=== PATIENT | male | born 1970 | race Caucasian/White ===

== ENCOUNTER 2020-09-28 12:49 | Inpatient (IN) | payer MEDICARE, MEDICAID ==
[2020-09-28] MEDS ORDERED: cefTRIAXone\\ROCEPHIN 1 GM VIAL ONE (13:47)
[2020-09-28] MEDS ORDERED: Pantoprazole 40 MG VIAL ONE (13:47)
--- NOTE | 2020-09-28 13:56 | RAD ---
PORTABLE SUPINE CHEST: 09/28/20 INDICATIONS: GI bleed. No comparison. The patient is rotated distorting the chest. No infiltrate or vascular congestion. There is a nodular opacity in the right apical region. This was present when review of CT cervical sp ine of 12/13/15 is reviewed. No effusion or vascular congestion. Heart and mediastinum are unremarkable considering the rotation. IMPRESSION: 1. No acute process. 2. Nodule in the right apex. Recommend follow-up exam with better positioning. Follow-up CT ches t may be of benefit to assess change in this nodule. Code T
[2020-09-28 16:55] LABS: #Lymphocytes 2.6 thou/uL (1.20-3.40); #Monocytes 1.5 thou/uL (0.11-0.59); #Neutrophils 10.9 thou/uL (1.40-6.50); %Basophils 0.3 % (0.0-1.0); %Eosinophils 0.1 % (0.0-10.0); %Lymphocytes 17.3 % (21.0-51.0); %Neutrophils 72.2 % (42.0-75.0); Hemoglobin 17.2 g/dL (14.0-18.0); Mean Corpuscular HGB CONC 33.8 g/dL (32.0-36.0); Mean Corpuscular Hemoglobin 32.4 pg (27.0-31.0); Mean Corpuscular Volume 95.8 fL (78.0-98.0); Mean Platelet Volume 9.2 fL (7.4-10.4); Platelet Count 126 thou/uL (130-400); RBC Distribution Width 12.5 % (11.5-14.5); Red Blood Cell (RBC) Count 5.31 mill/uL (4.70-6.10); White Blood Cell (WBC) Count 15.1 thou/uL (4.8-10.8)
[2020-09-28 17:02] LABS: PTT 28.1 sec (22.9-36.1); Prothrombin Time 13.2 sec (12.0-14.7)
[2020-09-28 17:26] LABS: Albumin 3.4 g/dL (3.5-5.0)
[2020-09-28 17:28] LABS: Calcium 8.8 mg/dL (7.8-10.44); Chloride 101 mmol/L (98-107); Sodium 137 mmol/L (136-145)
[2020-09-28 17:29] LABS: Globulin 3.8 g/dL (2.4-3.5); Glucose 83 mg/dL (70-105); Protein, Total 7.2 g/dL (6.0-8.3)
[2020-09-28 17:30] LABS: Anion Gap 15 mmol/L (10-20); Carbon Dioxide 26 mmol/L (22-29)
[2020-09-28 17:33] LABS: Alkaline Phosphatase 100 U/L (40-110); BUN (Urea Nitrogen) 10 mg/dL (8.9-20.6); Bilirubin, Total 0.8 mg/dL (0.2-1.2); Calc. Creatinine Clearance 0 mL/min (70-130); Estimated GFR-MDRD Greater than 90
[2020-09-28 17:34] LABS: AST (SGOT) 32 U/L (5-34)
[2020-09-28 17:35] LABS: ALT (SGPT) 13 U/L (8-55)
--- NOTE | 2020-09-28 18:08 | PDOC.HHP ---
Hospitalist HPI - History of Present Illness GI bleed History of Present Illness: PCP: Dr. Tj Tejeda The patient is a 50-year-old male with a past medical history significant for severe intellectual disability, dysphagia and epilepsy that presents to the emergency department via air med from [facility]. The patient is aphasic and unable to give a history, therefore, the H&P was taken from the ER notes and there was an unsuccessful attempt to contact retirement staff via telephone. Per the ER note, the patient had an episode of hematemesis this evening. The emesis was described as bright red blood and coffee-ground in nature. [facility] was called. Upon arrival, the patient was hypotensive and tachycardic with normal respirations and SPO2 saturation. The patient was given 1 unit of blood and 1 g of TXA and was transported to the hospital for further evaluation. ED Course: VITAL SIGNS SatSep 28, 2020 13:03 KYLE Zarate Oswaldo BP: 102/67, MAP: 78, Pulse: 105, Resp: 20, Temp: 98.0 (Oral), Pain: utr, O2 sat: 93 on (Room Air), Time: 09/28/2020 13:03. VITAL SIGNS SatSep 28, 2020 13:45 KYLE Riddle Kristin BP: 90/55, MAP: 66, Pulse: 92, Resp: 18, O2 sat: 94 on (Room Air), Time: 09/28/2020 13:45. VITAL SIGNS SatSep 28, 2020 14:00 KYLE Riddle Kristin BP: 94/61, MAP: 72, Pulse: 88, Resp: 20, O2 sat: 94 on (Room Air), Time: 09/11 14:00. VITAL SIGNS SatSep 28, 2020 14:45 KYLE Zarate Oswaldo BP: 103/66, MAP: 78, Pulse: 100, Resp: 20, Pain: UTR, O2 sat: 95 on (Room Air), Time: 09/28/2020 14:45. VITAL SIGNS SatSep 28, 2020 17:03 KYLE Zarate Oswaldo BP: 100/40, MAP: 60, Pulse: 96, Resp: 21, Temp: 98.1 (Oral), Pain: UTR, O2 sat: 93, Time: 09/28/2020 17:03. VITAL SIGNS SatSep 28, 2020 15:45 KYLE Zarate, [place] BP: 103/60, MAP: 74, Pulse: 79, Resp: 20, Pain: UTR, O2 sat: 93 on (Room Air), Time: 09/28/2020 15:45. Medications: Protonix intravenous 80 mg IV Piggy Back Given 14:57 09/28/2020 pantoprazole intravenous 80 mg IV Push Given 13:54 09/28/2020 Hospitalist ROS - Review of Systems ROS unobtainable: due to mental status All other systems reviewed; all pertinent +/- noted in HPI/Subj - Medication Medications: cetirizine SatSep 28, 2020 14:29 KYLE Riddle Kristin tablet : Strength - 10 mg : ORAL Patient Dose: 1 tab(s) G-Tube once a day. polyethylene glycol 3350 oral SatSep 28, 2020 14:30 KYLE Riddle Kristin powder in packet : Strength - 17 gram : ORAL Patient Dose: 17 g G-Tube once a day. scopolamine base SatSep 28, 2020 14:31 KYLE Riddle Kristin patch 3 day : Strength - 1 mg/3 day : TRANSDERMAL Patient Dose: 1.5 mg Topical.every 3 days. valproic acid SatSep 28, 2020 14:31 KYLE Riddle Kristin capsule : Strength - 250 mg : ORAL Patient Dose: 250 mg G-Tube 3 times a day. Zofran oral SatSep 28, 2020 14:32 KYLE Riddle Kristin tablet : Strength - 4 mg : ORAL Patient Dose: 4 mg G-Tube every 4 hours prn. 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 - Past Surgical History Past Surgical History: reports: Other (Unable to determine at bedside.) - Family History Family History: reports: Other (Unable to determine at bedside.) - Social History Smoking Status: Unknown if ever smoked Alcohol: reports: None Drugs: reports: none Living Situation: [facility] Activity level: bed bound - Exam General Appearance: NAD, awake alert. negative: ill appearing General - other findings: Aphasic Eye: PERRL, anicteric sclera ENT: normocephalic atraumatic Neck: supple, symmetric Heart: RRR, no murmur, no gallops, no rubs, normal peripheral pulses Respiratory: CTAB, no wheezes, no rales, no ronchi, normal chest expansion, no tachypnea Gastrointestinal: soft, non-tender, normal bowel sounds, no guarding, no rigidity Extremities: no cyanosis, no edema (All 4 extremities contracted) Neurological - other findings: GCS E4 V2 M4 Psychiatric - other findings: Alert, oriented x0 Hospitalist Results - Labs Result Diagrams: 09/28/20 16:43 09/28/20 16:43 Lab results: WBC 15.1 thou/uL (4.8-10.8) H 09/28/20 16:43 Hgb 17.2 g/dL (14.0-18.0) 09/28/20 16:43 Hct 50.9 % (42.0-52.0) 09/28/20 16:43 MCV 95.8 fL (78.0-98.0) 09/28/20 16:43 Plt Count 126 thou/uL (130-400) L 09/28/20 16:43 Neutrophils % 72.2 % (42.0-75.0) 09/28/20 16:43 Sodium 137 mmol/L (136-145) 09/28/20 16:43 Potassium 5.0 mmol/L (3.5-5.1) 09/28/20 16:43 Chloride 101 mmol/L (98-107) 09/28/20 16:43 Carbon Dioxide 26 mmol/L (22-29) 09/28/20 16:43 BUN 10 mg/dL (8.9-20.6) 09/28/20 16:43 Creatinine 0.67 mg/dL (0.7-1.3) L 09/28/20 16:43 Glucose 83 mg/dL (70-105) 09/28/20 16:43 Calcium 8.8 mg/dL (7.8-10.44) 09/28/20 16:43 Total Bilirubin 0.8 mg/dL (0.2-1.2) 09/28/20 16:43 AST 32 U/L (5-34) 09/28/20 16:43 ALT 13 U/L (8-55) 09/28/20 16:43 Alkaline Phosphatase 100 U/L (40-110) 09/28/20 16:43 Serum Total Protein 7.2 g/dL (6.0-8.3) 09/28/20 16:43 Albumin 3.4 g/dL (3.5-5.0) L 09/28/20 16:43 - EKG Interpretation EKG: EKG demonstrates normal sinus rhythm with rate 97, HI 138, cures duration 76, QTc of 424, cures axis 60 degrees normal T waves normal axis no conduction normal ST segment. Normal EKG. - Radiology Interpretation Chest x-ray Status: report reviewed by me Additional Comment: IMPRESSION: 1. No acute process. 2. Nodule in the right apex. Recommend follow-up exam with better positioning. Follow-up CT chest may be of benefit to assess change in this nodule. Hospitalist H&P A/P - Problem (1) Upper GI bleed Code(s): K92.2 - GASTROINTESTINAL HEMORRHAGE, UNSPECIFIED Status: Acute (2) Acute blood loss anemia Code(s): D62 - ACUTE POSTHEMORRHAGIC ANEMIA Status: Acute (3) Lung mass Code(s): R91.8 - OTHER NONSPECIFIC ABNORMAL FINDING OF LUNG FIELD Status: Acute (4) Epilepsy Code(s): G40.909 - EPILEPSY, UNSP, NOT INTRACTABLE, WITHOUT STATUS EPILEPTICUS Status: Chronic - Plan Plan: 50/M with PMH dysphagia with PEG tube presents for hematemesis. Admit telemetry floor, inpatient status. Expected length of stay greater than 2 midnights. Presented hypotensive, tachycardic, NL RR, SPO2, afebrile. EKG: Sinus rhythm 97 bpm, no ST elevations. CXR no acute process. Hgb 17.2, HCT 50.9, PT 13.2, INR 1.0 #GI bleed Received 1 unit PRBCs with air med, with TXA. Continue Protonix drip Consult GI N.p.o. T&S, trend H/H, check iron studies Unable to check orthostatic vitals. #Acute blood loss anemia Likely secondary to problem #1. #Lung mass Incidental finding on CXR. Recommend nonemergent CT follow-up. #Epilepsy Takes valproic acid 250 mg 3 times daily per G-tube. Spoke with pharmacy, therapeutic IV dose equivalent. Start valproic sodium IVPB 250 mg 3 times daily. Per pharmacy, discontinue prior to 14 days. Seizure precautions. SCDs for DVT prophylaxis. No pharmacological DVT prophylaxis. Protonix for GI prophylaxis. Full code. Discussed case with Dr. Ayala
[2020-09-28] MEDS ORDERED: Acetaminophen 325 MG TAB PO PRN (18:30)
[2020-09-28] MEDS ORDERED: Ondansetron ODT 4 MG TAB PO PRN (18:30)
[2020-09-28] MEDS ORDERED: Ondansetron PF 4 MG/2 ML Vial IVP PRN (18:30)
[2020-09-28 18:57] LABS: Reticulocyte Count 2.4 % (0.5-1.5)
[2020-09-28 19:16] LABS: Iron 117 ug/dL (65-175); Iron Binding Capacity, Total 318 mcg/dL (261-462)
[2020-09-28 19:42] LABS: Ferritin 60.91 ng/mL (22-322)
[2020-09-28] MEDS: Valproate Sodium 250 MG in Sodium Chloride 0.9% 100 ML IVPB SCH (23:17)
[2020-09-28] MEDS: Pantoprazole 80 MG, Admixture Fee 1 EACH in Sodium Chloride 0.9% 100 ML IVPB SCH (23:17)
[2020-09-28] MEDS: Sodium Chloride 0.9% 1,000 ML IV SCH (23:18)
[2020-09-28 23:46] VITALS: BMI 22.6
[2020-09-29 00:16] LABS: Hemoglobin 17.8 g/dL (14.0-18.0)
[2020-09-29 01:09] LABS: SARS-CoV-2 MS2 Positive; SARS-CoV-2 N Gene Negative; SARS-CoV-2 S Gene Negative; SARS-CoV-2 by NAA Not Detected (NotDetected); SARS-CoV-2 orf1ab Negative
[2020-09-29] MEDS: Sodium Chloride 0.9% 1,000 ML IV SCH ×3 (04:30→22:12)
--- NOTE | 2020-09-29 08:17 | PDOC.HOSPP ---
- Subjective Encounter Date: 09/29/20 Encounter Time: 11:00 non-verbal Subjective: Patient 70-90s on tele overnight. Was going to transfer to medical since H/H stable. On arrival in the room nurse noting BP 80s systolic and tachycardic to 140s with the BP cuff. I examined patient, not tachycardic on my exam. Suspect no accurate, but will hold on transfer to medical. Will get manual recheck. Pat ient making noises and moving around a bit, about the same as he has been. No acute changes. - Objective Vital Signs & Weight: Vital Signs (12 hours) Temp Pulse Resp BP Pulse Ox 09/29/20 05:00 98.5 F 98 20 139/63 94 L 09/28/20 22:30 94 L 09/28/20 22:27 98.4 F 102 H 20 113/66 94 L Weight Weight 131 lb 9.6 oz I&O: 09/28/20 09/29/20 09/30/20 06:59 06:59 06:59 Intake Total 789.3 Balance 789.3 Result Diagrams: 09/29/20 00:07 09/28/20 16:43 Hospitalist ROS - Review of Systems ROS unobtainable: due to mental status - Medication Medications: Active Medications Generic Name Dose Route Start Last Admin Trade Name Ravindraq PRN Reason Stop Dose Admin Pantoprazole Sodium 80 mg/ 100 mls @ 10 mls/hr 09/28/20 14:30 09/28/20 23:17 Miscellaneous Medication 1 IVPB 100 mls each/ Sodium Chloride INF SCOTTY Administration Sodium Chloride 1,000 mls @ 100 mls/hr 09/28/20 18:30 09/29/20 04:30 Normal Saline 0.9% IV Not Given .Q10H SCOTTY Valproic Acid 250 mg/ Sodium 102.5 mls @ 100 mls/hr 09/28/20 21:00 09/28/20 23:17 Chloride IVPB 102.5 mls TID SCOTTY Administration - Exam General Appearance: NAD ENT: moist mucosa Heart: RRR, no murmur, no gallops, no rubs Respiratory: CTAB, no wheezes, no rales, no ronchi Gastrointestinal: soft, non-tender, non-distended, normal bowel sounds Extremities - other findings: contractures of extremities Psychiatric: lethargic Hosp A/P (1) Upper GI bleed Code(s): K92.2 - GASTROINTESTINAL HEMORRHAGE, UNSPECIFIED Status: Acute (2) PEG (percutaneous endoscopic gastrostomy) status Code(s): Z93.1 - GASTROSTOMY STATUS Status: Chronic (3) Epilepsy Code(s): G40.909 - EPILEPSY, UNSP, NOT INTRACTABLE, WITHOUT STATUS EPILEPTICUS Status: Chronic (4) Lung mass Code(s): R91.8 - OTHER NONSPECIFIC ABNORMAL FINDING OF LUNG FIELD Status: Acute - Plan 50/M with PMH dysphagia with PEG tube presents for hematemesis. Admit telemetry floor, inpatient status. Expected length of stay greater than 2 midnights. Presented hypotensive, tachycardic per EMS but stable in our hospital, NL RR, SPO2, afebrile. EKG: Sinus rhythm 97 bpm, no ST elevations. CXR no acute process. Hgb 17.2, HCT 50.9, PT 13.2, INR 1.0 #GI bleed Received 1 unit PRBCs with air med, with TXA. Continue Protonix drip Consult GI N.p.o. T&S, trend H/H, check iron studies- stable this AM, high normal, can transfer to medical, question wether the low BP and tachycardia were artifactual by EMS. #Lung mass Incidental finding on CXR. Recommend nonemergent CT follow-up. #Epilepsy Takes valproic acid 250 mg 3 times daily per G-tube. Spoke with pharmacy, therapeutic IV dose equivalent. Start valproic sodium IVPB 250 mg 3 times daily. Per pharmacy, discontinue prior to 14 days. Seizure precautions. SCDs for DVT prophylaxis. No pharmacological DVT prophylaxis. Protonix for GI prophylaxis. Full code. I suspect that the hypotension and tachycardia at the scene were not due to blood loss at the scene as H/H high after only 1 unit PRBC and no evidence of significant or ongoing bleeding. I will continue to monitor on tele and recheck lab with the low BP now, but suspect may be more positional or artifact. Patient appears unchanged on exam.
[2020-09-29] MEDS ORDERED: Scopolamine 1.5 mg/72 hour Patch TD SCH (09:00)
[2020-09-29] MEDS ORDERED: Cetirizine HCl 10 MG TAB PER TUBE SCH (09:00)
[2020-09-29] MEDS: Scopolamine 1.5 mg/72 hour Patch TD SCH (09:42)
[2020-09-29] MEDS: Valproate Sodium 250 MG in Sodium Chloride 0.9% 100 ML IVPB SCH ×3 (09:43→22:08)
[2020-09-29] MEDS: Pantoprazole 80 MG, Admixture Fee 1 EACH in Sodium Chloride 0.9% 100 ML IVPB SCH ×2 (09:43→21:18)
[2020-09-29] MEDS: Polyethylene Glycol 3350 17 GM Packet PER TUBE SCH (12:49)
[2020-09-29 13:00] LABS: Anion Gap 10 mmol/L (10-20); BUN (Urea Nitrogen) 9 mg/dL (8.9-20.6); Calc. Creatinine Clearance 120 mL/min (70-130); Calcium 8.1 mg/dL (7.8-10.44); Carbon Dioxide 24 mmol/L (22-29); Chloride 109 mmol/L (98-107); Estimated GFR-MDRD Greater than 90; Glucose 72 mg/dL (70-105); Potassium 4.1 mmol/L (3.5-5.1); Sodium 139 mmol/L (136-145)
[2020-09-29 13:34] LABS: #Eosinphils 0.1 thou/uL (0.0-0.7); #Lymphocytes 1.9 thou/uL (1.20-3.40); #Monocytes 0.9 thou/uL (0.11-0.59); #Neutrophils 4.7 thou/uL (1.40-6.50); %Basophils 0.4 % (0.0-1.0); %Eosinophils 0.7 % (0.0-10.0); %Lymphocytes 25.6 % (21.0-51.0); %Monocytes 11.7 % (0.0-10.0); %Neutrophils 61.6 % (42.0-75.0); Hemoglobin 14.8 g/dL (14.0-18.0); Mean Corpuscular HGB CONC 33.8 g/dL (32.0-36.0); Mean Corpuscular Hemoglobin 32.8 pg (27.0-31.0); Mean Platelet Volume 8.6 fL (7.4-10.4); Platelet Count 121 thou/uL (130-400); RBC Distribution Width 12.4 % (11.5-14.5); Red Blood Cell (RBC) Count 4.52 mill/uL (4.70-6.10); White Blood Cell (WBC) Count 7.6 thou/uL (4.8-10.8)
[2020-09-29] MEDS: Loratadine 10 MG TAB PER TUBE SCH (14:46)
[2020-09-29 18:25] LABS: Hemoglobin 15.1 g/dL (14.0-18.0)
[2020-09-29 23:23] LABS: Hemoglobin 14.8 g/dL (14.0-18.0)
--- NOTE | 2020-09-30 01:19 | CON ---
DATE OF CONSULTATION: 09/29/2020 CHIEF COMPLAINT: Hematemesis. HISTORY OF PRESENT ILLNESS: Mr. Albrecht is a 50-year-old man with severe intellectual disability who resides at [facility], who apparently the night before, had an episode of coffee-ground emesis with red blood reported by staff at the longterm or the local ER. The patient developed hypotension and tachycardia, currently with a pulse in the 100s and blood pressure in the 80s. He received a unit of blood emergently, and when he arrived to the emergency room here, he was found to be in stable condition at that point without any other further signs of bleeding. He was admitted, he was given IV fluids, and his hemoglobin was noted to decrease from 17 to 15.1. GI was consulted due to possible gastrointestinal bleed. PAST MEDICAL HISTORY: Intellectual disability, epilepsy, BPH. PAST SURGICAL HISTORY: PEG tubes, otherwise, unknown. FAMILY HISTORY: Unable to be determined as the patient is nonverbal. HABITS: No drugs, alcohol, or smoking. ALLERGIES: PENICILLIN. CURRENT MEDICATIONS: 1. Pantoprazole drip. 2. Valproic acid. REVIEW OF SYSTEMS: Unobtainable due to the patient's baseline mental status. PHYSICAL EXAMINATION: VITAL SIGNS: Temperature 97.9, pulse 86, blood pressure 98/55. GENERAL: He is in no acute distress. He is contracted. HEENT: Eyes have no scleral icterus. Oropharynx is clear without lesions. No cervical or supraclavicular lymphadenopathy. LUNGS: Clear to auscultation bilaterally. HEART: Regular rate and rhythm without murmur. ABDOMEN: Soft, nontender, and nondistended. Bowel sounds are present. EXTREMITIES: No lower extremity edema, again contracted. LABORATORY DATA: Hemoglobin is 15.1, this is after a unit of transfusion. White blood cell count 7.6, platelets 121. INR 1.0. Creatinine 0.63, bilirubin 0.8, AST 32, ALT 13, alkaline phosphatase 100, albumin 3.4. IMPRESSION: 1. Tachycardia and hypotension. He was apparently dehydrated, and this could have been infectious or cardiac or neurologically related. He does not appear to have had a significant bleed to explain hypotension and tachycardia. 2. Hematemesis. He reportedly had some coffee-ground or bright red hematemesis before transfer. I lavaged his gastrostomy tube with 500 mL of water, and just had a return of clear water without any evidence of blood in the stomach. He had 2 light brown bowel movements today. He has no evidence of overt gastrointestinal bleeding or recent significant volume of bleeding. RECOMMENDATIONS: 1. Given the reported coffee-grounds emesis, it would be reasonable to continue proton pump inhibitor in case he has erosive esophagitis or gastritis or peptic ulcer. 2. Consider other etiologies for his hemodynamic instability. A cortisol level could be considered as well. 3. Proton pump inhibitor daily. 4. No plan for endoscopy at this point. I will sign off for now, but please call if his clinical status changes or if see further significant overt bleeding. Job ID: [id number]
[2020-09-30 04:05] LABS: #Eosinphils 0.1 thou/uL (0.0-0.7); #Monocytes 0.7 thou/uL (0.11-0.59); #Neutrophils 3.9 thou/uL (1.40-6.50); %Basophils 0.3 % (0.0-1.0); %Eosinophils 2.1 % (0.0-10.0); %Lymphocytes 29.9 % (21.0-51.0); %Monocytes 10.4 % (0.0-10.0); %Neutrophils 57.3 % (42.0-75.0); Hemoglobin 13.7 g/dL (14.0-18.0); Mean Corpuscular HGB CONC 33.5 g/dL (32.0-36.0); Mean Corpuscular Hemoglobin 32.4 pg (27.0-31.0); Mean Corpuscular Volume 96.5 fL (78.0-98.0); Mean Platelet Volume 8.1 fL (7.4-10.4); Platelet Count 120 thou/uL (130-400); RBC Distribution Width 12.2 % (11.5-14.5); Red Blood Cell (RBC) Count 4.25 mill/uL (4.70-6.10); White Blood Cell (WBC) Count 6.8 thou/uL (4.8-10.8)
[2020-09-30 04:24] LABS: Anion Gap 11 mmol/L (10-20); BUN (Urea Nitrogen) 6 mg/dL (8.9-20.6); Calc. Creatinine Clearance 137 mL/min (70-130); Calcium 8.1 mg/dL (7.8-10.44); Carbon Dioxide 23 mmol/L (22-29); Chloride 107 mmol/L (98-107); Estimated GFR-MDRD Greater than 90; Glucose 102 mg/dL (70-105); Potassium 3.4 mmol/L (3.5-5.1); Sodium 138 mmol/L (136-145)
[2020-09-30] MEDS ORDERED: Sodium Chloride 0.9% 500 ML IVPB SCH ×2 (04:45→05:30)
[2020-09-30] MEDS: Pantoprazole 80 MG, Admixture Fee 1 EACH in Sodium Chloride 0.9% 100 ML IVPB SCH (07:38)
[2020-09-30] MEDS: Polyethylene Glycol 3350 17 GM Packet PER TUBE SCH (08:03)
--- NOTE | 2020-09-30 08:13 | PDOC.HOSPP ---
- Subjective Encounter Date: 09/30/20 Encounter Time: 11:00 Subjective: Patient without changes overnight. Does keep having his BP drop to 80-90s systolic, but no further tachycardia. - Objective Vital Signs & Weight: Vital Signs (12 hours) Temp Pulse Resp BP BP BP BP 09/30/20 07:30 98.7 F 66 16 90/56 L 09/30/20 06:02 96/46 L 09/30/20 04:55 87 86/49 L 09/30/20 04:00 98.4 F 87 20 88/51 L Pulse Ox 09/30/20 07:30 98 09/30/20 06:02 09/30/20 04:55 09/30/20 04:00 95 Weight Admit Weight 131 lb 9.6 oz Weight 131 lb 9.6 oz I&O: 09/29/20 09/30/20 10/01/20 06:59 06:59 06:59 Intake Total 789.3 4100 Balance 789.3 4100 Result Diagrams: 09/30/20 03:48 09/30/20 03:48 Hospitalist ROS - Review of Systems ROS unobtainable: due to mental status - Medication Medications: Active Medications Generic Name Dose Route Start Last Admin Trade Name Freq PRN Reason Stop Dose Admin Pantoprazole Sodium 80 mg/ 100 mls @ 10 mls/hr 09/28/20 14:30 09/30/20 07:38 Miscellaneous Medication 1 IVPB 100 mls each/ Sodium Chloride INF SCOTTY Administration Sodium Chloride 1,000 mls @ 100 mls/hr 09/28/20 18:30 09/29/20 22:12 Normal Saline 0.9% IV 1,000 mls .Q10H SCOTTY Administration Loratadine 10 mg 09/29/20 09:00 09/29/20 14:46 Loratadine 10 Mg Tab PER TUBE Not Given DAILY SCOTTY Polyethylene Glycol 17 gm 09/29/20 09:00 09/30/20 08:03 Polyethylene Glycol 3350 17 Gm Packet PER TUBE Not Given DAILY SCOTTY Scopolamine 1.5 mg 09/29/20 09:00 09/29/20 09:42 Scopolamine 1.5 Mg/72 Hour Patch TD 1.5 mg Q3DAYS SCOTTY Administration - Exam General Appearance: awake alert General - other findings: yelling due to getting changed right now which is typical for him Heart: RRR, no murmur, no gallops, no rubs Respiratory: CTAB, no wheezes, no rales, no ronchi Gastrointestinal: soft, non-tender, non-distended, normal bowel sounds Extremities - other findings: contractures to extremities Psychiatric - other findings: yelling but no words, at baseline mental status as far as can tell Hosp A/P (1) Hypotension Status: Acute (2) Upper GI bleed Code(s): K92.2 - GASTROINTESTINAL HEMORRHAGE, UNSPECIFIED Status: Resolved (3) PEG (percutaneous endoscopic gastrostomy) status Code(s): Z93.1 - GASTROSTOMY STATUS Status: Chronic (4) Epilepsy Code(s): G40.909 - EPILEPSY, UNSP, NOT INTRACTABLE, WITHOUT STATUS EPILEPTICUS Status: Chronic (5) Lung mass Code(s): R91.8 - OTHER NONSPECIFIC ABNORMAL FINDING OF LUNG FIELD Status: Acute - Plan 50/M with PMH dysphagia with PEG tube presents for hematemesis. Admit telemetry floor, inpatient status. Expected length of stay greater than 2 midnights. Presented hypotensive, tachycardic per EMS but stable in our hospital, NL RR, SPO2, afebrile. EKG: Sinus rhythm 97 bpm, no ST elevations. CXR no acute process. Hgb 17.2, HCT 50.9, PT 13.2, INR 1.0 #Hypotension with intermittent tachycardia Patient without evidence significant bleed or infection. Will check UA, blood cultures, cortisol level. Consult cardiology. #GI bleed Received 1 unit PRBCs with air med, with TXA. Continue Protonix Consult GI- Dr. Roberson saw, no evidence significant GI bleed, restarted tube feeds and signed off. #Lung mass Incidental finding on CXR. Recommend nonemergent CT follow-up. #Epilepsy Takes valproic acid 250 mg 3 times daily per G-tube. Seizure precautions. SCDs for DVT prophylaxis. No pharmacological DVT prophylaxis. Protonix for GI prophylaxis. Full code.
[2020-09-30] MEDS ORDERED: Valproate Sodium 250 mg/5 ml UD Cup PER TUBE SCH (09:00)
[2020-09-30] MEDS: Loratadine 10 MG TAB PER TUBE SCH (09:37)
[2020-09-30] MEDS: Sodium Chloride 0.9% 1,000 ML IV SCH ×2 (10:18→20:04)
[2020-09-30 10:33] LABS: Bacteria/HPF None Seen HPF (None Seen); Bilirubin Negative (Negative); Blood, Urine Trace (Negative); Clarity Clear (Clear); Glucose, Urine (Dipstick) Normal (Negative); Ketone, Urine Negative (Negative); Leukocyte Negative Leu/uL (Negative); Nitrite Negative (Negative); Protein, Urine (Dipstick) Negative (Neg-Trace); RBC/HPF 0-3 HPF (0-3); Specific Gravity, Urine 1.006 (1.002-1.036); Squamous Epithelial None Seen HPF (0-3); Urobilinogen Normal mg/dL (Less than 2); WBC/HPF 0-3 HPF (0-3)
[2020-09-30] MEDS: Valproate Sodium 250 mg/5 ml UD Cup PER TUBE SCH ×2 (15:03→20:06)
[2020-09-30] MEDS: Pantoprazole 40 MG GRANULES PACKET PER TUBE SCH (20:06)
[2020-10-01 04:39] LABS: #Eosinphils 0.1 thou/uL (0.0-0.7); #Lymphocytes 1.8 thou/uL (1.20-3.40); #Monocytes 0.9 thou/uL (0.11-0.59); #Neutrophils 3.4 thou/uL (1.40-6.50); %Basophils 0.7 % (0.0-1.0); %Eosinophils 1.9 % (0.0-10.0); %Lymphocytes 29.3 % (21.0-51.0); %Monocytes 13.4 % (0.0-10.0); %Neutrophils 54.7 % (42.0-75.0); Mean Corpuscular HGB CONC 34.6 g/dL (32.0-36.0); Mean Corpuscular Hemoglobin 34.2 pg (27.0-31.0); Mean Corpuscular Volume 98.8 fL (78.0-98.0); Mean Platelet Volume 8.5 fL (7.4-10.4); Platelet Count 120 thou/uL (130-400); RBC Distribution Width 12.2 % (11.5-14.5); Red Blood Cell (RBC) Count 4.09 mill/uL (4.70-6.10); White Blood Cell (WBC) Count 6.3 thou/uL (4.8-10.8)
[2020-10-01 05:02] LABS: Anion Gap 12 mmol/L (10-20); BUN (Urea Nitrogen) 7 mg/dL (8.9-20.6); Calc. Creatinine Clearance 140 mL/min (70-130); Calcium 7.8 mg/dL (7.8-10.44); Carbon Dioxide 22 mmol/L (22-29); Chloride 110 mmol/L (98-107); Estimated GFR-MDRD Greater than 90; Glucose 89 mg/dL (70-105); Potassium 3.4 mmol/L (3.5-5.1); Sodium 141 mmol/L (136-145)
[2020-10-01] MEDS: Sodium Chloride 0.9% 1,000 ML IV SCH (07:13)
--- NOTE | 2020-10-01 08:14 | PDOC.HOSPP ---
- Subjective Encounter Date: 10/01/20 Encounter Time: 09:30 non-verbal Subjective: No events overnight. Patient continues to dip down to 80s systolic without other clinical signs of deterioration. Uncertain if this is baseline for him. - Objective Vital Signs & Weight: Vital Signs (12 hours) Temp Pulse Resp BP BP Pulse Ox 10/01/20 05:30 98.5 F 66 24 H 88/50 L 96 10/01/20 00:00 99.9 F H 20 09/30/20 20:27 99.8 F H 104 H 24 H 112/52 L 95 Weight Admit Weight 131 lb 9.6 oz Weight 141 lb I&O: 09/30/20 10/01/20 10/02/20 06:59 06:59 06:59 Intake Total 4100 3390 Balance 4100 3390 Result Diagrams: 10/01/20 03:58 10/01/20 03:58 Hospitalist ROS - Review of Systems ROS unobtainable: due to mental status - Medication Medications: Active Medications Generic Name Dose Route Start Last Admin Trade Name Janelle PRN Reason Stop Dose Admin Loratadine 10 mg 09/29/20 09:00 09/30/20 09:37 Loratadine 10 Mg Tab PER TUBE 10 mg DAILY SCOTTY Administration Pantoprazole Sodium 40 mg 09/30/20 21:00 09/30/20 20:06 Pantoprazole 40 Mg Granules Packet PER TUBE 40 mg BID SCOTTY Administration Polyethylene Glycol 17 gm 09/29/20 09:00 09/30/20 08:03 Polyethylene Glycol 3350 17 Gm Packet PER TUBE Not Given DAILY SCOTTY Scopolamine 1.5 mg 09/29/20 09:00 09/29/20 09:42 Scopolamine 1.5 Mg/72 Hour Patch TD 1.5 mg Q3DAYS SCOTTY Administration Valproic Acid 450 mg 09/30/20 15:00 09/30/20 20:06 Valproate Sodium 250 Mg/5 Ml Ud Cup PER TUBE 450 mg TID SCOTTY Administration - Exam General Appearance: NAD, awake alert ENT: moist mucosa Heart: RRR, no murmur, no gallops, no rubs Respiratory: CTAB, no wheezes, no rales, no ronchi Gastrointestinal: soft, non-tender, non-distended, normal bowel sounds Gastrointestinal - other findings: PEG in place, no bleeding Extremities - other findings: contractures of extremities Psychiatric: not oriented Hosp A/P (1) Hypotension Status: Acute (2) Upper GI bleed Code(s): K92.2 - GASTROINTESTINAL HEMORRHAGE, UNSPECIFIED Status: Resolved (3) PEG (percutaneous endoscopic gastrostomy) status Code(s): Z93.1 - GASTROSTOMY STATUS Status: Chronic (4) Epilepsy Code(s): G40.909 - EPILEPSY, UNSP, NOT INTRACTABLE, WITHOUT STATUS EPILEPTICUS Status: Chronic (5) Lung mass Code(s): R91.8 - OTHER NONSPECIFIC ABNORMAL FINDING OF LUNG FIELD Status: Acute - Plan 50/M with PMH dysphagia with PEG tube presents for hematemesis. Admit telemetry floor, inpatient status. Expected length of stay greater than 2 midnights. Presented hypotensive, tachycardic per EMS but stable in our hospital, NL RR, SPO2, afebrile. EKG: Sinus rhythm 97 bpm, no ST elevations. CXR no acute process. Hgb 17.2, HCT 50.9, PT 13.2, INR 1.0 #Hypotension with intermittent tachycardia Patient without evidence significant bleed or infection. Will check UA, blood cultures, cortisol level- all normal thus far. Consulted cardiology. Wondering if this is patient's baseline. Will try to contact patient's [facility] and find out what his normal BP is. #GI bleed Received 1 unit PRBCs with air med, with TXA. Continue Protonix, change to po. Consult GI- Dr. Roberson saw, no evidence significant GI bleed, restarted tube feeds and signed off. #Lung mass Incidental finding on CXR. Recommend nonemergent CT follow-up. #Epilepsy Takes valproic acid 250 mg 3 times daily per G-tube. Seizure precautions. SCDs for DVT prophylaxis. No pharmacological DVT prophylaxis. Protonix for GI prophylaxis. Full code.
[2020-10-01] MEDS: Pantoprazole 40 MG GRANULES PACKET PER TUBE SCH ×2 (08:40→22:28)
[2020-10-01] MEDS: Polyethylene Glycol 3350 17 GM Packet PER TUBE SCH (08:40)
[2020-10-01] MEDS: Loratadine 10 MG TAB PER TUBE SCH (08:40)
[2020-10-01] MEDS: Valproate Sodium 250 mg/5 ml UD Cup PER TUBE SCH ×3 (08:43→22:27)
[2020-10-01 13:46] LABS: Lactic Acid 1.2 mmol/L (0.5-2.2)
--- NOTE | 2020-10-01 14:27 | CON ---
DATE OF CONSULTATION: 10/01/2020 REASON FOR CONSULTATION: Low blood pressure. HISTORY OF PRESENT ILLNESS: Mr. Fredrick Albrecht is an unfortunate 50-year-old gentleman who is living in [facility]. The note indicates that he has severe intellectual disability, dysphagia, and epilepsy. He was brought here with gastrointestinal bleed. He was noted to have some anemia and did receive packed red blood cells. The patient is nonverbal and therefore cannot give a history. PAST MEDICAL HISTORY: As outlined above. PHYSICAL EXAMINATION: GENERAL: This gentleman is nonverbal. His predominant voice sounds are intermittent grunting. VITAL SIGNS: Blood pressure 92/50, pulse in the 60s and sinus. LUNGS: Clear. CARDIAC: Normal S1, normal S2. ABDOMEN: Soft and nontender. EXTREMITIES: There is no edema. He has what appears contractures. LABORATORY DATA: Hemoglobin is up to 14. Echocardiogram was unremarkable with normal left ventricular function. EKG is normal. ASSESSMENT: 1. Relatively low blood pressure, but asymptomatic. 2. Normal echocardiogram. PLAN: He has had a PEG tube in place. He has been evaluated by Gastroenterology. No other recommendations. We will sign off. No other intervention indicated. Job ID: [id number]
--- NOTE | 2020-10-01 17:13 | EKG ---
Test Reason : GI BLEED Blood Pressure : / mmHG Vent. Rate : 097 BPM Atrial Rate : 097 BPM P-R Int : 138 ms QRS Dur : 076 ms QT Int : 334 ms P-R-T Axes : 062 068 067 degrees QTc Int : 424 ms Normal sinus rhythm Normal ECG Confirmed by JA HE DO ([id number]), web editor [employer] OGDEN ([id number]) on 10/01/2020 5:12:30 PM Referred By: Confirmed By:JA HE DO
[2020-10-02] MEDS: Valproate Sodium 250 mg/5 ml UD Cup PER TUBE SCH ×2 (10:28→16:19)
[2020-10-02] MEDS: Scopolamine 1.5 mg/72 hour Patch TD SCH (10:29)
[2020-10-02] MEDS: Loratadine 10 MG TAB PER TUBE SCH (10:29)
[2020-10-02] MEDS: Polyethylene Glycol 3350 17 GM Packet PER TUBE SCH (10:30)
[2020-10-02] MEDS: Pantoprazole 40 MG GRANULES PACKET PER TUBE SCH (10:30)
[2020-10-02 15:50] VITALS: TEMP 98.9
--- NOTE | 2020-10-02 16:19 | PDOC.DS.DS ---
Provider - Provider Date of Admission: 09/28/20 18:07 Date of Discharge: 10/02/20 Admitting Provider: Basilio Ayala MD Consultations: Gastroentrology Primary Care Physician: RICHELLE ESCAMILLA MD Course - Hospital Course Hospital Course: This is an unfortunate 50-year-old gentleman who lives at a snf whose medical history includes developmental delay who does not communicate in any well-formed. He also has history of epilepsy. He was sent in because he apparently had an episode of hematemesis. He was sent in here for GI evaluation. By the time he got here he has not had any further bleeding. His hemoglobin remained stable. He was seen by the GI services who did not recommend any endoscopic evaluation. Mr. Albrecht has done well since being admitted. His hemoglobin remained stable. I will go ahead and discharge him back to his facility today. Resuscitation Status: 09/28/20 18:30 Resuscitation Status Routine Co-Sign Provider: Resuscitation Status: FULL: Full Resuscitation Discussed with: [facility] staff - Labs Lab Results: 10/01/20 03:58 10/01/20 03:58 Abnormal Lab Results - Last 48 hrs 10/01/20 03:58: Potassium 3.4 L, Chloride 110 H, BUN 7 L, Creatinine 0.54 L 10/01/20 03:58: RBC 4.09 L, Hct 40.4 L, MCV 98.8 H, MCH 34.2 H, Plt Count 120 L, Monocytes % 13.4 H, Monocytes # 0.9 H Microbiology - Entire Visit 09/30/20 08:40 Venous blood - Left Hand Blood Culture - Preliminary NO GROWTH AT 48 HOURS 09/30/20 08:40 Venous blood - Right Hand Blood Culture - Preliminary NO GROWTH AT 48 HOURS - Physical Exam Vitals: Vital Signs (12 hours) Temp Pulse Resp BP BP Pulse Ox 10/02/20 15:49 98.9 F 83 17 82/52 L 96 10/02/20 11:36 98.7 F 76 16 95/55 L 96 10/02/20 08:00 97.6 F 77 18 91/51 L 96 Weight Admit Weight 131 lb 9.6 oz Weight 139 lb 14.4 oz Physical Exam: The patient was seen and examined on the day of discharge. Problem - Problem (1) Upper GI bleed Code(s): K92.2 - GASTROINTESTINAL HEMORRHAGE, UNSPECIFIED Status: Resolved Plan: No further GI bleeding noted. H&H remained stable. (2) Epilepsy Code(s): G40.909 - EPILEPSY, UNSP, NOT INTRACTABLE, WITHOUT STATUS EPILEPTICUS Status: Chronic Qualifiers: Epilepsy type: partial symptomatic Partial seizure type: with complex partial seizures Intractability: not intractable Status epilepticus: without status epilepticus Qualified Code(s): G40.209 - Localization-related (focal) (partial) symptomatic epilepsy and epileptic syndromes with complex partial seizures, not intractable, without status epilepticus (3) PEG (percutaneous endoscopic gastrostomy) status Code(s): Z93.1 - GASTROSTOMY STATUS Status: Chronic Plan - Discharge Medications Home Medications: Medication Instructions Recorded Confirmed Type Ondansetron HCl [Zofran] 4 mg PER TUBE Q4HR PRN 09/28/20 09/29/20 History Valproic Acid (As Sodium Salt) 9 ml PER TUBE TID 09/28/20 09/29/20 History [Valproic Acid] Ondansetron [Zofran ODT] 4 mg PO Q6H PRN tab 10/02/20 Rx Pantoprazole [Protonix] 40 mg PER TUBE BID pk 10/02/20 Rx Polyethylene Glycol 3350 [Miralax] 17 gm PER TUBE DAILY pk 10/02/20 Rx Scopolamine [Transderm Scop] 1.5 mg TD Q3DAYS patch 10/02/20 Rx Allergies: Penicillins Allergy (Verified 09/29/20 00:12) PER PICIS ORDER - Discharge Instructions Activity:: Activity as Tolerated Nourishment:: Supplemental Diet, Tube Feeding Diet - Follow up Plan Referrals: ALDO KELLY [Other] (PATIENT TO RETURN TO [place] TODAY) RICHELLE ESCAMILLA [Primary Care Provider] - Disposition: [facility] Quality - Care Measures CORE MEASURES:: N/A
[2020-10-02 19:55] VITALS: BP 95/53
--- NOTE | 2020-10-05 07:43 | PQF ---
CLINICAL DOCUMENTATION CLARIFICATION FORM: Dear Dr. Chong Mccabe Date: 10.05.20 Please exercise your independent, professional judgment in responding to the clarification form. Clinical indicators are provided on the bottom of this form for your review. Please check appropriate box(es): [ x ] Functional Quadriplegia [ ] No physical limitations [ ] Other diagnosis [ ] Unable to determine For continuity of documentation, please document condition throughout progress notes and discharge summary. Thank You. To be completed by CDI/Coding staff for physician review: CLINICAL INDICATORS - SIGNS / SYMPTOMS / LABS/ RESULTS AND LOCATION IN MR ED: Nonverbal with severe intellectual disability, contractures in all extremities H&P (E[facility]): PMH: severe intellectual disability, dysphagia; epilepsy from MI 11.19 Nursing assessment: *Total Assistance; Contractures to all extremities *PEG/Condom Cath/Diaper *Bedfast RISK FACTORS / RESULTS AND LOCATION IN H&P (Elif): PMH: severe intellectual disability TREATMENT / RESULTS AND LOCATION IN 11.19 Nursing assessment: *Incontinence care *Pt encouraged/assisted w/ dietary intake *Turn Q2 *PEG/Diaper/Catheter care CDS Signature: Crystal Portillo RN, CCDS Phone #: [phone] [email or web address] This is a permanent part of the Medical Record [facility]
== END 2020-10-02 16:44 | DRG 378 ==
LOC: ERS 12:49 → 2NO 18:07
PROVIDERS: ADMIT Internal Medicine; ATTEND Hospitalist
DX: K92.0 Hematemesis (principal); G40.209 Localization-related (focal) (partial) symptomatic epilepsy and epileptic syndromes with complex partial seizures, not intractable, without status epilepticus; D62 Acute posthemorrhagic anemia; F72 Severe intellectual disabilities; R91.8 Other nonspecific abnormal finding of lung field; Z20.828 Contact with and (suspected) exposure to other viral communicable diseases; E86.0 Dehydration; I95.9 Hypotension, unspecified; R00.0 Tachycardia, unspecified; N40.0 Benign prostatic hyperplasia without lower urinary tract symptoms; F81.9 Developmental disorder of scholastic skills, unspecified; Z93.1 Gastrostomy status; Z88.0 Allergy status to penicillin; Z79.899 Other long term (current) drug therapy
CPT/HCPCS: 36415; 71045; 80048; 80053; 81003; 81015; 82533; 82607; 82728; 82746; 83540; 83550; 83605; 85025; 85046; 85610; 85730; 86850; 86900; 86901; 87040; 87635; 93005; 93306; 96365; 96366; 96376; C9113; J0696; J3490; J7030; U0003